=== PATIENT | male | born 1960 ===

== ENCOUNTER 2023-07-22 09:58 | Emergency (ER) | payer SELFPAY ==
[2023-07-22 10:00] VITALS: BP 159/100
--- NOTE | 2023-07-22 10:12 | ED.GENMED ---
History of Present Illness
General
Chief Complaint: Male Genito-Urinary Symptoms
Time Seen by Provider: 07/22/23 10:05
Travel History
Have you had any contact with someone who has COVID-19?: No
Do you have any symptoms of coronavirus? Fever > 100 degrees, chills, cough, shortness of breath, sore throat, loss of taste or smell, muscle aches, or headache?: No
History of Present Illness
History of Present Illness:
63-year-old male with history of [id number] diabetes, hypertension, hyperlipidemia, and BPH presents to the emergency attention. Was not able to empty his bladder since late last night. Follows with urologist in [place] where he
resides, just had a voiding trial passed successfully 4 days ago and a Jane catheter was removed. Currently he is on Augmentin and tamsulosin.
Review of Systems
Review of Systems
Allergies reviewed?: Yes
All Other Systems: ROS reviewed and negative except as documented in HPI and ROS
Phy Exam
Physical Exam
Physical Exam:
GEN: Visibly uncomfortable
HEENT: Oral mucosa moist, no scleral icterus
Cardiac: Regular rate
Lung: No respiratory distress, no tachypnea
Abdomen: Suprapubic distention noted
MSK: No gross deformity or injuries
Skin: Good color, no pallor or jaundice, no rashes
Neuro: AO x3, moves all extremities freely
Psych: Calm, cooperative
Course
Orders/Labs/Results
Orders:
Orders
07/22/23 10:12
Jane Placement- Treatment ONCE
Reason for insertion: Acute Retention
07/22/23 10:21
Lidocaine 2% [Lidocaine Uro-Jet 2%] 1 syringe .ROUTE .[id number] ONE
Vital Signs
Initial and Last Documented VS:
Initial Vital Signs
Temp Pulse Resp BP Pulse Ox
98.2 F 77 20 159/100 97
07/22/23 10:00 07/22/23 10:00 07/22/23 10:00 07/22/23 10:00 07/22/23 10:00
Last Documented Vital Signs
Temp Pulse Resp BP Pulse Ox
98.2 F 62 17 135/88 98
07/22/23 10:00 07/22/23 11:21 07/22/23 11:21 07/22/23 11:21 07/22/23 11:21
MDM/Problems Addressed
MDM/Problems Addressed:
Patient is already on Augmentin per his urologist. Jane with greater than 1500 cc out after placement. He is feeling much improved. Recommend outpatient follow-up with his urologist when he returns home
*Critical Care Note
Total Time (30-74mins, 75-104mins- exclusive of procedures): Not Applicable
ED Attending Note
-
Portions of this chart may have been created with voice recognition software.� Occasional wrong word or��sound alike� substitutions may have occurred due to the inherent limitations of voice recognition software.
Discharge Plan
Departure
Patient Disposition: Home (Routine Discharge)
Date of Disposition: 07/22/23
Time of Disposition: 11:00
Patient with high blood pressure during this ER visit?: Yes
Discharge Problem:
Benign prostatic hyperplasia with urinary retention
Instructions: Urinary Retention (DC)
Referrals:
NONE,* [Family Provider] -
Activity Restrictions/Additional Instructions:
Follow up with your urologist in [place] to discuss next steps
Interventions
Interventions:
*Risk Screen - Suicide Last Done: 07/22/23 11:51
*General Assessment Last Done: 07/22/23 11:49
*Neglect/Abuse Screening Last Done: 07/22/23 11:51
ED- Fall Risk Assessment Last Done: 07/22/23 11:51
*ED COVID-19 Vaccine History Last Done: 07/22/23 11:51
*Nursing Disposition Last Done: 07/22/23 11:51
ED-Male Genitourinary Assessment Last Done: 07/22/23 11:49
Discharge Date and Time
Discharge Date/Time: 07/22/23 11:52
Print Language: IRISH
[2023-07-22 11:21] VITALS: BP 135/88
== END 2023-07-22 11:52 | disposition home or self-care (01) ==
LOC: EMR 09:58
PROVIDERS: EMERGENCY PHYSICIAN Student in an Organized Health Care Education/Training Program
DX: N40.1 Benign prostatic hyperplasia with lower urinary tract symptoms (principal); R33.9 Retention of urine, unspecified; I10 Essential (primary) hypertension; E11.9 Type 2 diabetes mellitus without complications; E78.5 Hyperlipidemia, unspecified
CPT/HCPCS: 99283; 51702